=== PATIENT | female | born 1950 | race Caucasian/White ===

== ENCOUNTER 2016-08-26 11:53 | Emergency (ER) | payer OTHER ==
[2016-08-26 12:02] VITALS: BP 123/77; PULSE 90; TEMP 98.7; BMI 29.0
[2016-08-26] MEDS ORDERED: DIPHTH,PERTUSS(ACELL),TET 0.5 ML DISP.SYRIN IM ONE (12:53)
--- NOTE | 2016-08-26 13:00 | PDOC ---
History of Present Illness - General Chief Complaint: Pain Stated Complaint: LT FOOT LACERATION Time Seen by Provider: 08/26/16 12:12 History Source: Patient - History of Present Illness Initial Comments: 08/26/16 12:21 Pt. is a 66 y/o female with PMH of NIDDM who presents to [facility] with a chief complaint of a cut on her top left foot. Pt. states she dropped a steak knife on her left foot. Denies numbness or tingling, weakness, and loss of range of motion in the foot. Does not remember the date of her last tetanus vaccination. Past History - Travel Traveled outside of the country in the last 30 days: No Close contact w/someone who was outside of country & ill: No - Past Medical History Allergies/Adverse Reactions: Allergies Allergy/AdvReac Type Severity Reaction Status Date / Time No Known Drug Allergies Allergy Verified 08/26/16 11:57 Home Medications: Ambulatory Orders Aspirin Coated [Ecotrin -] 81 mg PO DAILY 08/30/11 Fosinopril Sodium [Monopril] 20 mg PO DAILY 08/30/11 Glipizide [Glucotrol -] 5 mg PO BID 08/30/11 Oxycodone HCl/Acetaminophen [Percocet 5-325 mg Tablet] 1 tab PO PRN PRN Atorvastatin Ca [Lipitor] 10 mg PO DAILY 08/12/12 Docusate Sodium [Colace -] 100 mg PO TID 08/12/12 Amitriptyline HCl [Elavil -] 1 tab PO HS 12/03/14 Sitagliptin Phos/Metformin HCl [Janumet 50-1,000 mg Tablet] 1 tab PO BID Gabapentin [Neurontin] 300 mg PO BID 12/04/14 Gabapentin [Neurontin] 600 mg PO HS 12/04/14 Oxycodone HCl/Acetaminophen [Percocet 5-325 mg Tablet] 1 tab PO Q6H PRN #20 tablet 12/04/14 Mupirocin 25 gm TP BID #1 tube 08/26/16 Anemia: No Asthma: No Cancer: No Cardiac Disorders: No CVA: No COPD: No CHF: No Dementia: No Diabetes: Yes (NIDDM) GI Disorders: No Disorders: No HTN: Yes Hypercholesterolemia: Yes Liver Disease: No Seizures: No Thyroid Disease: No - Surgical History Abdominal Surgery: Yes (TUMMY TUCK) Appendectomy: No Cardiac Surgery: No Cholecystectomy: No Lung Surgery: No Neurologic Surgery: No Orthopedic Surgery: Yes (RIGHT&LEFT ARTHROSCOPY,LEFT CARPAL TUNNEL,) - Psycho/Social/Smoking Cessation Hx Anxiety: No Suicidal Ideation: No Smoking Status: Yes Smoking History: Never smoked Have you smoked in the past 12 months: No Number of Cigarettes Smoked Daily: 0 If you are a former smoker, when did you quit?: 1995 Information on smoking cessation initiated: No Hx Alcohol Use: No Drug/Substance Use Hx: No Substance Use Type: None Hx Substance Use Treatment: No Review of Systems - Review of Systems Constitutional: No: Chills, Fever, Weakness Integumentary: Yes: Other (laceration to left foot). No: Bruising, Erythema, Pruritus *Physical Exam - Vital Signs Last Vital Signs Temp Pulse Resp BP Pulse Ox 98.7 F 90 18 123/77 100 08/26/16 11:57 08/26/16 11:57 08/26/16 11:57 08/26/16 11:57 08/26/16 11:57 - Physical Exam General Appearance: Yes: Nourished, Appropriately Dressed, Apparent Distress Vascular Pulses: Dorsalis-Pedis (R): 2+ (regular), Doralis-Pedis (L): 2+ ( regular) Extremity: positive: Normal Capillary Refill, Normal Range of Motion. negative : Normal Inspection (0.5cm superficial laceration of the L dorsal foot) Integumentary: positive: Other (0.5 cm superficial stab wound to the mid dorsal left foot. No need for suturing at this time. Bleeding controlled. ) Neurologic: positive: helmet hat sweatband puncher II-XII NML intact, Fully Oriented, Alert, Normal Mood/ Affect, Normal Response, Motor Strength 5/5 Procedures - Laceration/Wound Repair Left Medial Dorsal Foot Wound Length: to 2.5 cm (0.5cm in length) Wound Explored: no foreign body present Wound's Depth, Shape: superficial Irrigated w/ Saline: Yes Betadine Prep: Yes Sterile Dressing Applied: Yes Medical Decision Making - Medical Decision Making 08/26/16 13:30 Wound was irrigated with copious amounts of saline and betadine. Bleeding controlled after irrigation. Bacitracin and bandaid applied to wound. Tetanus updated at this time. Will discharge home at this time. Pt. was given strict return precautions and educated signs on of infection. Pt. understands all discharge instructions and all questions were answered at this time. *DC/Admit/Observation/Transfer Diagnosis at time of Disposition: Laceration of foot Qualifiers: Encounter type: initial encounter Laterality: left Qualified Code(s): S91.312A - Laceration without foreign body, left foot, initial encounter - Discharge Dispostion Disposition: HOME Condition at time of disposition: Stable Admit: No - Prescriptions Prescriptions: Mupirocin 25 gm TP BID #1 tube - Referrals Referrals: Dewey Carter MD [Primary Care Provider] - - Patient Instructions Additional Instructions: You have a small cut to the top of your foot. It did not require stitches. Your tetanus shot was updated today. Keep the area clean and dry. You were prescribed Mupirocin (bactroban) as an antibiotic ointment. Use the ointment twice a day. Keep the area covered while out or wearing shoes. Leave the wound open at night to air out. If it starts bleeding in the next 24-48 hours, put 4x4s and an RALEIGH wrap on your foot to stop the bleeding. You may use ice for comfort and to reduce the swelling. Take ibuprofen or Tylenol as needed for pain. Return to the ED if you see signs of infection such as warmth around the area, foul smelling drainage, or if you have fevers or chills.
== END 2016-08-26 13:24 | disposition home or self-care (01) ==
LOC: JERFT 11:53
DX: S91.312A Laceration without foreign body, left foot, initial encounter (principal); W26.0XXA Contact with knife, initial encounter; Y93.89 Activity, other specified; Y92.030 Kitchen in apartment as the place of occurrence of the external cause
CPT/HCPCS: 90715; 99281-25

== ENCOUNTER 2018-03-14 08:56 | Emergency (ER) | payer OTHER ==
--- NOTE | 2018-03-14 09:03 | PDOC ---
History of Present Illness - General Chief Complaint: Pain, Acute Stated Complaint: ABD PAIN Time Seen by Provider: 03/14/18 09:03 History Source: Patient Exam Limitations: No Limitations - History of Present Illness Initial Comments: 03/14/18 09:26 67 year old female with PMH DM presented to ED for epigastric pain x1 week. She stated her pain is constant, radiating to her right flank, alleviated by milk, aggravated by coffee and food. She admitted to nausea and increased urinary frequency. She denied vomiting, diarrhea, constipation, fever, chest pain, shortness of breath. She stated she has had a non productive cough x1 week and a runny nose yesterday. Past History - Past Medical History Allergies/Adverse Reactions: Allergies Allergy/AdvReac Type Severity Reaction Status Date / Time No Known Drug Allergies Allergy Verified 03/14/18 08:58 Home Medications: Ambulatory Orders Fosinopril Sodium [Monopril] 20 mg PO DAILY 08/30/11 Glipizide [Glucotrol -] 5 mg PO BID 08/30/11 Atorvastatin Ca [Lipitor] 10 mg PO DAILY 08/12/12 Amitriptyline HCl [Elavil -] 1 tab PO HS 12/03/14 Gabapentin [Neurontin] 600 mg PO QID 03/14/18 Liraglutide [Victoza -] 1.2 mg SQ DAILY@0700 03/14/18 Mag Hydrox/Al Hydrox/Simeth [Mylanta Suspension -] 30 ml PO Q6H #1 bottle Metformin HCl [Glucophage] 1,000 mg PO BID 03/14/18 Anemia: No Asthma: No Cancer: No Cardiac Disorders: No CVA: No COPD: No CHF: No Dementia: No Diabetes: Yes (NIDDM) GI Disorders: No Disorders: No HTN: Yes Hypercholesterolemia: Yes Liver Disease: No Seizures: No Thyroid Disease: No - Surgical History Abdominal Surgery: Yes (DONNA CRUZ) Appendectomy: No Cardiac Surgery: No Cholecystectomy: No Lung Surgery: No Neurologic Surgery: No Orthopedic Surgery: Yes (RIGHT&LEFT ARTHROSCOPY,LEFT CARPAL TUNNEL,) - Suicide/Smoking/Psychosocial Hx Smoking Status: Yes Smoking History: Never smoked Have you smoked in the past 12 months: No Number of Cigarettes Smoked Daily: 0 If you are a former smoker, when did you quit?: 1995 Hx Alcohol Use: No Drug/Substance Use Hx: No Substance Use Type: None Hx Substance Use Treatment: No Review of Systems - Review of Systems Able to Perform ROS?: Yes Comments:: 03/14/18 09:29 General: denied fever, chills, night sweats, generalized weakness. HEENT: admitted to rhinorrhea. denied sore throat, ear pain. Heart: denied chest pain, palpitations, syncope, lower extremity swelling, diaphoresis. Respiratory: admitted to cough. denied shortness of breath, sputum production, hemoptysis. Abdomen: admitted to abdominal pain, nausea. denied vomiting, diarrhea, constipation, blood in stool. : admitted to increased urinary frequency. denied dysuria, hematuria, urinary incontinence. Back: admitted to right flank pain. Musculoskeletal: denied joint pain, muscle pain, joint swelling. Neurological: denied headache, dizziness, numbness, tingling, weakness. Skin: denied rash, laceration, abrasion. *Physical Exam - Physical Exam Comments: 03/14/18 09:30 Constitutional: Well-nourished, Well-developed, appearing stated age. HEENT: head is normocephalic, atraumatic. EOMI. PERRLA. Neck: supple. Full ROM. Heart: regular rhythm. no murmurs, rubs or gallops. Lungs: clear to auscultation bilaterally. no crackles, rhonchi or wheezing. no stridor. Abdomen: soft, flat, tenderness to palpation of epigastrium and RUQ. murphys negative. normal bowel sounds. no rebound, guarding, masses. Back: no CVA tenderness bilaterally. Extremities: Peripheral pulses intact. No lower extremity edema. Neurological: CN 2-12 grossly intact. Moves all four extremities. Psych: awake, alert, oriented x3. Follows commands. Answers questions appropriately. ED Treatment Course - LABORATORY CBC & Chemistry Diagram: 03/14/18 09:20 03/14/18 09:20 Medical Decision Making - Medical Decision Making 03/14/18 09:30 67 year old female with PMH DM presented to ED for epigastric pain radiating to right flank associated with nausea and increased urinary frequency. Abdominal examination was significant for epigastric and RUQ tenderness. Initial Vital Signs Temp Pulse Resp BP Pulse Ox 97.9 F 89 16 113/70 100 03/14/18 09:04 03/14/18 09:04 03/14/18 09:04 03/14/18 09:04 03/14/18 09:04 Afebrile. No tachycardia. No tachypnea. Mild hypotension. No hypoxia on room air. Pepcid/Maalox/Zofran ordered for epigastric pain/nausea. Pending RUQ US, CMP for evaluation of possible acute GB pathology. Pending UA/UC, CBC for evaluation of possible UTI/pyelonephritis. Pending EKG, cardiac enzymes for evaluation of possible ACS. Pending Lipase for evaluation of possible pancreatitis. 03/14/18 10:20 EKG performed at 0945: rate 81, regular rhythm, left axis, incomplete rBBB, no acute ST changes. Similar to prior 12/04/2014. CBC WBC 8.1 K/mm3 (4.0-10.0) 03/14/18 09:20 RBC 5.62 M/mm3 (3.60-5.2) H 03/14/18 09:20 Hgb 13.1 GM/dL (10.7-15.3) 03/14/18 09:20 Hct 42.5 % (32.4-45.2) 03/14/18 09:20 MCV 75.6 fl (80-96) L 03/14/18 09:20 MCH 23.3 pg (25.7-33.7) L 03/14/18 09:20 MCHC 30.8 g/dl (32.0-36.0) L 03/14/18 09:20 RDW 16.5 % (11.6-15.6) H 03/14/18 09:20 Plt Count 138 K/MM3 (134-434) 03/14/18 09:20 MPV 9.1 fl (7.5-11.1) 03/14/18 09:20 Absolute Neuts (auto) 5.4 K/mm3 (1.5-8.0) 03/14/18 09:20 Neutrophils % 66.7 % (42.8-82.8) 03/14/18 09:20 Lymphocytes % 24.9 % (8-40) 03/14/18 09:20 Monocytes % 6.5 % (3.8-10.2) 03/14/18 09:20 Eosinophils % 1.3 % (0-4.5) 03/14/18 09:20 Basophils % 0.6 % (0-2.0) 03/14/18 09:20 Nucleated RBC % 0 % (0-0) 03/14/18 09:20 No leukocytosis. No anemia. CMP Sodium 141 mmol/L (136-145) 03/14/18 09:20 Potassium 4.1 mmol/L (3.5-5.1) 03/14/18 09:20 Chloride 108 mmol/L (98-107) H 03/14/18 09:20 Carbon Dioxide 23 mmol/L (21-32) 03/14/18 09:20 Anion Gap 10 MMOL/L (8-16) 03/14/18 09:20 BUN 21 mg/dL (7-18) H 03/14/18 09:20 Creatinine 0.8 mg/dL (0.55-1.3) 03/14/18 09:20 Creat Clearance w eGFR > 60 (>60) 03/14/18 09:20 Random Glucose 147 mg/dL (74-106) H 03/14/18 09:20 Calcium 8.8 mg/dL (8.5-10.1) 03/14/18 09:20 Total Bilirubin 0.4 mg/dL (0.2-1) 03/14/18 09:20 AST 35 U/L (15-37) 03/14/18 09:20 ALT 32 U/L (13-61) 03/14/18 09:20 Alkaline Phosphatase 104 U/L (45-117) 03/14/18 09:20 Creatine Kinase 59 IU/L (26-192) 03/14/18 09:20 Troponin I < 0.02 ng/ml (0.00-0.05) 03/14/18 09:20 Total Protein 7.4 g/dl (6.4-8.2) 03/14/18 09:20 Albumin 3.4 g/dl (3.4-5.0) 03/14/18 09:20 Lipase 719 U/L (73-393) H 03/14/18 09:20 No electrolyte abnormalities. No DANA. Mild dehydration. No transaminitis. Normal bilirubin. Mild hyperglycemia. Elevated lipase. Urine Test Results Urine Color Ltyellow 03/14/18 09:30 Urine Appearance Clear 03/14/18 09:30 Urine pH 5.0 (5.0-8.0) 03/14/18 09:30 Ur Specific [place] 1.017 (1.010-1.035) 03/14/18 09:30 Urine Protein Negative (NEGATIVE) 03/14/18 09:30 Urine Glucose (UA) 2+ (NEGATIVE) H 03/14/18 09:30 Urine Ketones Negative (NEGATIVE) 03/14/18 09:30 Urine Blood Negative (NEGATIVE) 03/14/18 09:30 Urine Nitrite Negative (NEGATIVE) 03/14/18 09:30 Urine Bilirubin Negative (<2.0 mg/dL) 03/14/18 09:30 Ur Leukocyte Esterase Trace (NEGATIVE) 03/14/18:30 Ur Epithelial Cells Rare /HPF (FEW) 03/14/18:30 Urine Mucus Rare 03/14/18 09:30 WBC = 1 No evidence of urinary tract infection. 03/14/18 11:10 RUQ US report: hepatomegaly with fatty liver. no gall stones. borderline thickening of GB wall, no pericholecystic fluid. 03/14/18 11:23 Pt reported pain completely resolved. Abdomen soft, flat, nontender to palpation. Dr. Carter paged to ensure her a prompt follow up appointment. 03/14/18 12:[address] Carter, who would like the patient to be admitted for observation. Pt to be admitted. 03/14/18 12:[address] Carter's PA recommends 1000 cc IV fluid bolus and discharge with liquid diet of 24-48 hours and progress as tolerated. She stated she has an appointment with Dr. Carter 03/22. They request GI follow up. Pt given GI referrals and informed to eat an all liquid diet for 24-48 hours. Pt expressed understanding for the plan for care and stated she would follow up with both PCP and GI. Pt to be discharged. *DC/Admit/Observation/Transfer Diagnosis at time of Disposition: Epigastric pain, Elevated lipase - Discharge Dispostion Disposition: HOME Condition at time of disposition: Improved Decision to Admit order: No - Prescriptions Prescriptions: Mag Hydrox/Al Hydrox/Simeth [Mylanta Suspension -] 30 ml PO Q6H #1 bottle - Referrals Referrals: Dewey Carter MD [Staff Physician] - 1 Week Marianna Gray MD [Staff Physician] - 1 Week - Patient Instructions Printed Discharge Instructions: Full Liquid Diet Additional Instructions: You were seen today for abdominal pain. Your lab work was normal, other than an elevated lipase, which is a marker for pancreatitis. Your ultrasound showed a fatty liver, no gall stones. Dr. Carter preferred to admit you for observation, but you refused. His recommendation is to follow up with him and a GI doctor, I have given you a referral. He recommended a liquid diet for 24-48 hours, and to progress as tolerated. Call Dr. Carter and ask for a sooner appointment. Follow up with GI in 1-3 days. Return to the Emergency Department for increasing pain, chest pain, shortness of breath, fever, lightheadedness like you may pass out, or any other new, worsening or concerning symptoms. DEVAN BERNARD - Post Discharge Activity Forms/Work/School Notes: Back to Work
[2018-03-14 09:06] VITALS: TEMP 97.9; BMI 34.3
[2018-03-14] MEDS ORDERED: MAG HYDROX/AL HYDROX/SIMETH 30 ML UNIT-DOSE CUP PO ONE (09:21)
[2018-03-14] MEDS ORDERED: ONDANSETRON 4 MG/2 ML VIAL IVPUSH ONE (09:21)
[2018-03-14] MEDS ORDERED: FAMOTIDINE 20 MG/50 ML IVPB 20 MG/50 ML MG IVPB ONE ×2 (09:21→09:31)
[2018-03-14] MEDS ORDERED: ONDANSETRON 4 MG/2 ML VIAL ONE (09:30)
[2018-03-14] MEDS ORDERED: MAG HYDROX/AL HYDROX/SIMETH 30 ML UNIT-DOSE CUP ONE (09:30)
[2018-03-14 09:47] LABS: BASO % 0.6 % (0-2.0); EOS % 1.3 % (0-4.5); HEMATOCRIT 42.5 % (32.4-45.2); HEMOGLOBIN 13.1 GM/dL (10.7-15.3); LYMPH % 24.9 % (8-40); MCH 23.3 pg (25.7-33.7); MCHC 30.8 g/dl (32.0-36.0); MEAN CELL VOLUME 75.6 fl (80-96); MEAN PLT VOLUME 9.1 fl (7.5-11.1); MONO % 6.5 % (3.8-10.2); NEUT % 66.7 % (42.8-82.8); PLATELET COUNT 138 K/MM3 (134-434); RBC 5.62 M/mm3 (3.60-5.2); RDW 16.5 % (11.6-15.6); WHITE BLOOD COUNT 8.1 K/mm3 (4.0-10.0)
[2018-03-14 10:01] LABS: INR 1.07 (0.83-1.09); PROTHROMBIN TIME (PATIENT) 12.6 SEC (9.7-13.0)
[2018-03-14 10:03] LABS: ACTIVATED PTT 26.1 SECONDS (25.2-36.5)
[2018-03-14 10:03] LABS: URINE APPEARANCE CLEAR; URINE BILIRUBIN NEGATIVE (<2.0 mg/dL); URINE COLOR LTYELLOW; URINE GLUCOSE (UA) 2+ (NEGATIVE); URINE KETONE NEGATIVE (NEGATIVE); URINE LEUK ESTERASE TRACE (NEGATIVE); URINE NITRITE NEGATIVE (NEGATIVE); URINE PROTEIN NEGATIVE (NEGATIVE); URINE UROBILINOGEN NEGATIVE mg/dL (0.2-1.0)
[2018-03-14 10:10] LABS: ALBUMIN 3.4 g/dl (3.4-5.0); ALK PHOS 104 U/L (45-117); ANION GAP 10 MMOL/L (8-16); BILIRUBIN,TOTAL 0.4 mg/dL (0.2-1); BLOOD UREA NITROGEN 21 mg/dL (7-18); CALCIUM 8.8 mg/dL (8.5-10.1); CHLORIDE 108 mmol/L (98-107); CO2 23 mmol/L (21-32); CREATININE 0.8 mg/dL (0.55-1.3); GLUCOSE,RANDOM 147 mg/dL (74-106); POTASSIUM 4.1 mmol/L (3.5-5.1); SGOT/AST 35 U/L (15-37); SGPT/ALT 32 U/L (13-61); SODIUM 141 mmol/L (136-145); TOT PROT 7.4 g/dl (6.4-8.2)
[2018-03-14 10:13] LABS: EPI CELLS RARE /HPF (FEW); URINE HYALINE CAST 1 /lpf; URINE MUCUS RARE
--- NOTE | 2018-03-14 10:27 | EKG ---
Test Reason : Blood Pressure : / mmHG Vent. Rate : 081 BPM Atrial Rate : 081 BPM P-R Int : 178 ms QRS Dur : 104 ms QT Int : 392 ms P-R-T Axes : 042 -23 018 degrees QTc Int : 455 ms NORMAL SINUS RHYTHM INCOMPLETE RIGHT BUNDLE BRANCH BLOCK BORDERLINE ECG WHEN COMPARED WITH ECG OF 04-DEC-2014 06:20, NO SIGNIFICANT CHANGE WAS FOUND Confirmed by JOSE LUIS SANTA MD ([id number]) on 03/14/2018 10:26:49 AM Referred By: Confirmed By:JOSE LUIS SANTA MD
[2018-03-14] MEDS ORDERED: SODIUM CHLORIDE 1,000 ML IV STA (12:35)
[2018-03-14] MEDS ORDERED: LACTATED RINGERS SOLUTION 1000 ML INFUS.BAG IV ONE (12:37)
--- NOTE | 2018-03-14 12:38 | CONSULT ---
Consult Consult Specialty:: Internal Medicine Referred by:: ED Reason for Consultation:: assess for admission - History of Present Illness Chief Complaint: abdominal pain History of Present Illness: 67 year old female pmh of HTN, NIDDM presents with abd pain x 1.5 weeks. Pt reports she's been having moderate intermittent aching abd pain, radiating across upper abdomen. She reports increased pain 1-2 hours post meals. She reports she has been eating/drinking less due to pain. Otherwise, denies any chest pain, sob, n/v/d, dysuria, fever/chills. During my interaction, pt lying in bed in no acute distress. In ED, lipase noted to be 719. Pt reports pain has subsided and she feels well. - History Source History Provided By: Patient Limitations to Obtaining History: No Limitations - Past Medical History Cardio/Vascular: Yes: HTN Endocrine: Yes: Diabetes Mellitus - Alcohol/Substance Use Hx Alcohol Use: No History of Substance Use: reports: None - Smoking History Smoking history: Never smoked Have you smoked in the past 12 months: No Aproximately how many cigarettes per day: 0 If you are a former smoker, when did you quit?: 1995 Home Medications - Allergies Allergies/Adverse Reactions: Allergies Allergy/AdvReac Type Severity Reaction Status Date / Time No Known Drug Allergies Allergy Verified 03/14/18 08:58 - Home Medications Home Medications: Ambulatory Orders Fosinopril Sodium [Monopril] 20 mg PO DAILY 08/30/11 Glipizide [Glucotrol -] 5 mg PO BID 08/30/11 Atorvastatin Ca [Lipitor] 10 mg PO DAILY 08/12/12 Amitriptyline HCl [Elavil -] 1 tab PO HS 12/03/14 Gabapentin [Neurontin] 600 mg PO QID 03/14/18 Liraglutide [Victoza -] 1.2 mg SQ DAILY@0700 03/14/18 Mag Hydrox/Al Hydrox/Simeth [Mylanta Suspension -] 30 ml PO Q6H #1 bottle Metformin HCl [Glucophage] 1,000 mg PO BID 03/14/18 Family Disease History - Family Disease History Family Disease History: Diabetes: Mother, Heart Disease: Mother Physical Exam Vital Signs: Vital Signs Temperature 97.9 F 03/14/18 09:04 Pulse Rate 89 03/14/18 09:04 Respiratory Rate 16 03/14/18 09:04 Blood Pressure 113/70 03/14/18 09:04 O2 Sat by Pulse Oximetry (%) 99 03/14/18 09:40 Constitutional: Yes: Well Nourished, No Distress Cardiovascular: Yes: WNL, Regular Rate and Rhythm. No: Murmur, Rub Respiratory: Yes: WNL, Regular, CTA Bilaterally. No: Accessory Muscle Use, SOB , Tachypnea, Wheezes Gastrointestinal: Yes: WNL, Normal Bowel Sounds, Soft, Abdomen, Obese. No: Distention, Tenderness, Tenderness, Rebound, Vomiting Renal/: Yes: WNL Musculoskeletal: Yes: WNL Extremities: Yes: WNL Edema: No Neurological: Yes: WNL, Alert, Oriented Psychiatric: Yes: WNL, Alert, Oriented Labs: CBC, BMP 03/14/18 09:20 03/14/18 09:20 Imaging - Results Ultrasound: Report Reviewed (no acute findings) Problem List - Problems (1) Abdominal pain Code(s): R10.9 - UNSPECIFIED ABDOMINAL PAIN Qualifiers: Abdominal location: epigastric Qualified Code(s): R10.13 - Epigastric pain (2) Elevated lipase Code(s): R74.8 - ABNORMAL LEVELS OF OTHER SERUM ENZYMES Assessment/Plan 67 year old female presents w/ intermittent aching upper abd pain, mildly elevated lipase noted. Abd exam benign. I advised observation admission but the pt refuses. Will give 1L LR bolus. Advise clear/full liquids and advance as tolerated, GI follow up, and close monitoring with PCP. Hold Victoza in the mean time as pancreatitis can be an adverse effect. Case discussed with PCP and ED covering. 32 minutes spent in reviewing chart, formulating plan, and discussing with interdisciplinary team
--- NOTE | 2018-03-14 12:49 | PDOC ---
Attending Attestation - HPI HPI: 03/14/18 13:34 The patient is a 67 year old female, with a significant past medical history of diabetes, who presents to the emergency department with one week epigastric pain , nausea, increased frequency. She reports her epigastric pain radiates to her right upper quadrant and right flank. The patient denies chest pain, shortness of breath, headache and dizziness. The patient denies fever, chills, vomit, diarrhea and constipation. The patient denies dysuria, urgency and hematuria. Allergies: NKDA - Medical Decision Making 03/14/18 13:35 Documentation prepared by Teresa Bryan, acting as medical aides teacher for Stephanie Smith MD <Teresa Bryan - Last Filed: 03/14/18 13:34> - Resident Resident Name: Anisa Pisano - ED Attending Attestation I have performed the following: I have examined & evaluated the patient, The case was reviewed & discussed with the resident, I agree w/resident's findings & plan, Exceptions are as noted - Physicial Exam PE: GENERAL: Awake, alert, and fully oriented, in no acute distress HEAD: No signs of trauma EYES: PERRLA, EOMI, sclera anicteric, conjunctiva clear ENT: Auricles normal inspection, hearing grossly normal, nares patent, oropharynx clear without exudates. Moist mucosa NECK: Normal ROM, supple, no lymphadenopathy, JVD, or masses LUNGS: Breath sounds equal, clear to auscultation bilaterally. No wheezes, and no crackles HEART: Regular rate and rhythm, normal S1 and S2, no murmurs, rubs or gallops ABDOMEN: Soft, +mild epigastric tenderness, normoactive bowel sounds. No guarding, no rebound. No masses EXTREMITIES: Normal range of motion, no edema. No clubbing or cyanosis. No cords, erythema, or tenderness NEUROLOGICAL: Cranial nerves II through XII grossly intact. Normal speech, normal gait SKIN: Warm, Dry, normal turgor, no rashes or lesions noted. - Medical Decision Making Pt with epigastric tenderness, found to have elevation in lipase, but not more than 3x the upper limit of normal. Patient is tolerating PO in ED after GI cocktail, no signs of acute abdomen. Would recommend urgent outpatient f/u with her PMD to continue to monitor labs. <Stephanie Smith - Last Filed: 03/14/18 14:19>
[2018-03-14 14:11] VITALS: BP 118/72; PULSE 78
== END 2018-03-14 14:12 | disposition home or self-care (01) ==
LOC: JER 08:56 → UNDOADMOB 12:18 → JERBED 12:18
PROC: 3E033GC Introduction of Other Therapeutic Substance into Peripheral Vein, Percutaneous Approach (ICD-10-PCS; principal; 2018-03-14)
PROC: 3E033GC Introduction of Other Therapeutic Substance into Peripheral Vein, Percutaneous Approach (ICD-10-PCS; 2018-03-14)
DX: R10.31 Right lower quadrant pain (principal); R74.8 Abnormal levels of other serum enzymes; I10 Essential (primary) hypertension; E11.9 Type 2 diabetes mellitus without complications; Z79.84 Long term (current) use of oral hypoglycemic drugs; E78.00 Pure hypercholesterolemia, unspecified
CPT/HCPCS: 36415; 76705-TC; 80053; 81003; 81015; 82550; 83690; 84484; 85025; 85610; 85730; 86850; 86900; 86901; 87086; 93005; 93010; 99284-25

== ENCOUNTER 2018-03-29 09:22 | Day surgery (SDC) | payer OTHER ==
[2018-03-27 14:08] VITALS: BMI 34.3
[2018-03-29] MEDS ORDERED: BUPIVACAINE HCL/PF 2.5 MG/ML - 30 ML VIAL IJ ONE (13:32)
[2018-03-29] MEDS ORDERED: ceFAZolin SODIUM 1 GM VIAL ONE (13:57)
[2018-03-29] MEDS ORDERED: ONDANSETRON 4 MG/2 ML VIAL ONE (14:09)
[2018-03-29] MEDS ORDERED: DEXAMETHASONE SOD PHOSPHATE 4 MG/1 ML VIAL ONE (14:09)
[2018-03-29] MEDS ORDERED: BUPIVACAINE HCL/PF 0.25% (2.5MG/ML) 10 ML VIAL IJ ONE (14:27)
[2018-03-29] MEDS ORDERED: ONDANSETRON 4 MG/2 ML VIAL IVPUSH PRN (14:56)
[2018-03-29] MEDS ORDERED: ACETAMINOPHEN 325 MG TABLET (FP) PO PRN (14:56)
[2018-03-29] MEDS ORDERED: ACETAMINOPHEN 325 MG TABLET (FP) ONE (15:15)
[2018-03-29] MEDS ORDERED: ACETAMINOPHEN 325 MG TABLET (FP) PO ONE (15:15)
[2018-03-29 15:50] VITALS: TEMP 97.9
[2018-03-29] MEDS ORDERED: oxyCODONE HCL 5 MG TABLET PO PRN (16:21)
[2018-03-29 16:47] VITALS: BP 120/72; PULSE 73
--- NOTE | 2018-04-01 12:55 | OP ---
DATE OF OPERATION: 03/29/2018 SURGEON: Cedric Khalil MD CIGAR HEAD PUNCHER: DILLON Josue PREOPERATIVE DIAGNOSES: 1. Right knee medial and lateral meniscal tear. 2. Right knee cartilage tear. 3. Right knee synovitis. POSTOPERATIVE DIAGNOSES: 1. Right knee medial and lateral meniscal tear. 2. Right knee cartilage tear. 3. Right knee synovitis. PROCEDURE: 1. Right knee arthroscopy with partial meniscectomy medial and lateral meniscus, CPT code 38165. 2. Right knee arthroscopy with chondroplasty and abrasion-plasty, CPT code 96985. 3. Right knee arthroscopy with synovectomy including removal of medial plica, 2975. FINDINGS: 1. Medial meniscus posterior horn tear, minor. 2. Lateral meniscus posterior one half tear. 3. Synovitis patellofemoral medial and lateral notch area. 4. Anterior grade 2-3 cartilage injury medial femoral condyle tibial plateau. 5. ACL and PCL intact. 6. Minimal cartilage changes lateral femoral condyle tibial plateau. 7. Central grade 2-4 cartilage injury patella and patellofemoral trochlea. PROCEDURE: Informed consent was obtained. The patient came to the operating room, where the lower extremity was prepped and draped in a sterile fashion. A tourniquet was placed on the upper thigh, but not inflated. Using standard arthroscopic technique, a lateral incision and portal was made to allow for introduction of the camera into the suprapatellar bursa. This was then taken to the medial joint line, where under direct visualization, a medial incision and portal was made. Excessive synovium noted in the medial, lateral and patellofemoral and notch area was removed by an upbiter, shaver and Bovie cautery. This was found to bring in inflammatory tissue into the joint surface, a source of pain and dysfunction. Probing of the medial and lateral meniscus found tears, as described in the findings. These were removed with the upbiter and shaver and taken back to a stable rim. Grade 2 to 3 degenerative changes were treated with a chondroplasty, removing all flaking surfaces with low-setting Bovie along the periphery to prevent further flaking. Grade 4 changes, as noted, were treated with an abrasoplasty, creating a bleeding surface at the bone/cartilage interface. Aggressive debridement with shaver/sandrita created bleeding surface. Micro fracture also done when indicated in findings. All areas of the knee were once again reexamined. The knee was then drained and a single suture was placed in all portals. A sterile dressing was placed and the patient was transferred to the recovery room without complication. The PA listed above was present and assisted at surgery. Their presence was absolutely medically necessary for the completion of the procedure. They helped hold the arthroscopy, pass instruments (and implants when indicated) and the procedure could not have been completed without their assistance. CEDRIC KHALIL M.D. [id number]
--- NOTE | 2018-04-03 18:33 | PATH ---
Surgical Pathology Report Patient Name: BIA BOWMAN Med. Rec. #: [id number] /Age/Gender: 1950 (Age: 67) / F Account: [id number] Location: [facility] Taken: 03/29/2018 Received: 03/29/2018 Reported: 04/03/2018 Physicians: Cedric Pinto M.D. Specimen(s) Received SHAVINGSRIGHT KNEE SHAVINGS Clinical History Right internal derangement Final Diagnosis RIGHT KNEE SHAVINGS: FRAGMENTS OF CARTILAGE AND FIBROSYNOVIAL TISSUE WITH DEGENERATIVE CHANGE. Electronically Signed Nehemias Zarate M.D. Gross Description Received in formalin labeled "right knee shavings" are multiple fragments of white-ayon fibrocartilaginous soft tissue measuring 2 x 1.5 x 0.4 cm aggregate. Entire specimen is submitted in one cassette. MLLeiaZ/04/01/2018 quinn/04/01/2018
== END 2018-03-29 16:47 | disposition home or self-care (01) ==
LOC: FASU 09:22
PROVIDERS: ATTEND Orthopaedic Surgery
PROC: 0SBC4ZZ Excision of Right Knee Joint, Percutaneous Endoscopic Approach (ICD-10-PCS; 2018-03-29)
PROC: 0SBC4ZZ Excision of Right Knee Joint, Percutaneous Endoscopic Approach (ICD-10-PCS; 2018-03-29)
PROC: 0SBC4ZZ Excision of Right Knee Joint, Percutaneous Endoscopic Approach (ICD-10-PCS; principal; 2018-03-29 14:16)
DX: S83.241A Other tear of medial meniscus, current injury, right knee, initial encounter (principal); S83.281A Other tear of lateral meniscus, current injury, right knee, initial encounter; S83.8X1A Sprain of other specified parts of right knee, initial encounter; M65.861 Other synovitis and tenosynovitis, right lower leg; X58.XXXA Exposure to other specified factors, initial encounter; Y93.9 Activity, unspecified; Y92.9 Unspecified place or not applicable
CPT/HCPCS: 82962; 88304-TC; 94760

== ENCOUNTER 2019-02-03 08:46 | Emergency (ER) | payer OTHER ==
[2019-02-03 08:53] VITALS: TEMP 98.6; BMI 34.3
[2019-02-03 09:57] VITALS: BP 137/78
--- NOTE | 2019-02-03 09:58 | PDOC ---
History of Present Illness - General Chief Complaint: Respiratory Stated Complaint: COUGHING/ BACK ACHE Time Seen by Provider: 02/03/19 08:58 History Source: Patient - History of Present Illness Initial Comments: 02/03/19 09:53 68 yo F PMH of HTN, HLD, DM presented to ED with cough and chest tightness x 1.5 weeks. 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 pt states cough has been constant for the past week and a half. she states that shes been coughing so much now she has chest tightness b/l. she states the cough improved a little after taking some cough syrup. the cold air makes the cough worse. pt states cough is productive but denies hemoptysis. pt denies fevers, n/v/d. pt had similar cough and presentation in december which resolved with Z pack. additionally, pt states she has been having financial difficulty paying for diabetic medication and is searching for more affordable alternatives. pt states she recently has been experiencing numbness and tingling in her B/L LE Past History - Past Medical History Allergies/Adverse Reactions: Allergies Allergy/AdvReac Type Severity Reaction Status Date / Time No Known Drug Allergies Allergy Verified 02/03/19 08:48 Home Medications: Ambulatory Orders Atorvastatin Ca [Lipitor] 10 mg PO DAILY 08/12/12 Amitriptyline HCl [Elavil -] 1 tab PO HS 12/03/14 Gabapentin [Neurontin] 600 mg PO QID 03/14/18 Metformin HCl [Glucophage] 1,000 mg PO BID 03/14/18 Aspirin [Adult Aspirin] 81 mg PO DAILY 03/27/18 Docusate Sodium [Colace] 100 mg PO BID 03/27/18 Fosinopril Sodium 20 mg PO DAILY 03/29/18 Glimepiride 1 mg PO BID 03/29/18 Pantoprazole Sodium [Protonix] 40 mg PO DAILY 03/29/18 Anemia: No Asthma: No Cancer: No Cardiac Disorders: No CVA: No COPD: No CHF: No Dementia: No Diabetes: Yes (NIDDM) GI Disorders: No Disorders: No HTN: Yes Hypercholesterolemia: Yes Liver Disease: No Seizures: No Thyroid Disease: No - Surgical History Abdominal Surgery: Yes (DONNA CRUZ) Appendectomy: No Cardiac Surgery: No Cholecystectomy: No Lung Surgery: No Neurologic Surgery: No Orthopedic Surgery: Yes (RIGHT&LEFT ARTHROSCOPY,LEFT CARPAL TUNNEL,) - Immunization History Immunization Up to Date: Yes - Psycho Social/Smoking Cessation Hx Smoking Status: Yes Smoking History: Never smoked Have you smoked in the past 12 months: No Number of Cigarettes Smoked Daily: 0 If you are a former smoker, when did you quit?: 1995 Hx Alcohol Use: No Drug/Substance Use Hx: No Substance Use Type: None Hx Substance Use Treatment: No Review of Systems - Review of Systems Is the patient limited Norwegian proficient: Yes Constitutional: Yes: Chills. No: Fever HEENTM: Yes: Throat Pain. No: Difficulty Swallowing Respiratory: Yes: Cough, Productive cough. No: Wheezing, Hemoptysis Cardiac (ROS): Yes: Chest Tightness. No: Edema, Irregular Heart Rate, Palpitations ABD/GI: No: Blood Streaked Bowels, Diarrhea, Nausea, Poor Fluid Intake, Vomiting : No: Dysuria, Frequency, Hematuria Musculoskeletal: Yes: Joint Pain, Joint Stiffness Neurological: Yes: Numbness (b/ le ), Tingling *Physical Exam - Vital Signs Last Vital Signs Temp Pulse Resp BP Pulse Ox 98.6 F 82 18 127/69 9 L 02/03/19 08:48 02/03/19 08:48 02/03/19 08:48 02/03/19 08:48 02/03/19 08:48 - Physical Exam General Appearance: Yes: Nourished, Appropriately Dressed HEENT: positive: Normal Voice, Pharyngeal Erythema Neck: positive: Lymphadenopathy (L) (submandibular ) Respiratory/Chest: positive: Lungs Clear, Normal Breath Sounds. negative: Accessory Muscle Use Cardiovascular: positive: Regular Rhythm, Regular Rate, S1, S2. negative: JVD Gastrointestinal/Abdominal: positive: Normal Bowel Sounds. negative: Distended Extremity: positive: Normal Inspection Neurologic: positive: Fully Oriented. negative: Numbness, Sensory Deficit ( sensory intact b/l LE ) ED Treatment Course - LABORATORY CBC & Chemistry Diagram: 02/03/19 10:10 02/03/19 10:10 - RADIOLOGY Radiology Studies Ordered: Category Date Time Status CHEST X-RAY PORTABLE* [RAD] Stat Radiology 02/03/19 09:38 Ordered Medical Decision Making - Medical Decision Making 02/03/19 10:03 68 yo F presenting with cough and chest tightness. r/o ACS r/o pna , bronchitis r/o asthma exac likely URI -CBC, BMP -flu swab -EKG , trops r/o ACS -CXR r/o pna -pt afebrile, vitas stable 02/03/19 10:05 CXR reviewed, poor quality --> bnp ordered , possibly overload . no evidence of vascular congestive changes -ventolin , poss rxtive airway. pt states symptoms are worse in cold air -ISS, BGM 02/03/19 10:16 -cepacol drop 02/03/19 11:11 EKG reviewed NSR CBC reviewed no leukocytosis BNP 315
[2019-02-03] MEDS ORDERED: ALBUTEROL SO4 0.083% IH SOL 2.5 MG/3 ML VIAL.NEB. NEB PRN (10:04)
[2019-02-03] MEDS ORDERED: BENZOCAINE/MENTH/CETYLPYRD CL 1 EACH LOZENGE MM PRN (10:17)
--- NOTE | 2019-02-03 10:17 | PDOC ---
Documentation entered by Amarilis Ty SCRIBE, acting as scribe for Pamela Tuttle DO. Pamela Tuttle DO: This documentation has been prepared by the Melony fernandez Sammi, SCRIBE, under my direction and personally reviewed by me in its entirety. I confirm that the documentation accurately reflects all work, treatment, procedures, and medical decision making performed by me. Attending Attestation - Resident Resident Name: SumanthMary - ED Attending Attestation I have performed the following: I have examined & evaluated the patient, The case was reviewed & discussed with the resident, I agree w/resident's findings & plan, Exceptions are as noted - HPI HPI: 02/03/19 10:37 The patient is a 68 year old female who presents to the emergency department for evaluation of 1.5 weeks of worsening cold like symptoms. She notes the onset of a sore throat and productive cough (beige colored) which is exacerbated in the cold like when the air conditioner is on. She denies nausea, vomiting, or diarrhea. 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 PMH: DM (noncompliant with medications) PCP: Raul - Physicial Exam PE: 02/03/19 10:38 GENERAL: Awake, alert, and fully oriented, in no acute distress EYES: PERRLA, EOMI, sclera anicteric, conjunctiva clear ENT: Auricles normal inspection, hearing grossly normal, nares patent, oropharynx clear without exudates or erythema. NECK: Normal ROM, supple, no lymphadenopathy, JVD, or masses LUNGS: Breath sounds equal, clear to auscultation bilaterally. No wheezes, and no crackles. Not in respiratory distress, stating 100% on room air. HEART: Regular rate and rhythm, normal S1 and S2, no murmurs, rubs or gallops ABDOMEN: Obese, soft, nontender. No guarding, no rebound. No masses EXTREMITIES: +left lower extremity > than right (chronic). Normal range of motion, no edema. No cords, erythema, or tenderness. No calf tenderness. NEUROLOGICAL: Cranial nerves II through XII grossly intact. Normal speech, ambulates with steady gate. SKIN: Warm, Dry, normal turgor, no rashes or lesions noted. - Medical Decision Making 02/03/19 10:09 I, Dr. Pamela Tuttle, DO, attest that this document has been prepared under my direction and personally reviewed by me in its entirety. I further attest, that it accurately reflects all work, treatment, procedures and medical decision -making performed by me. 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
[2019-02-03 10:26] VITALS: PULSE 82
[2019-02-03 10:28] LABS: HEMATOCRIT 41.6 % (32.4-45.2); HEMOGLOBIN 13.2 GM/dL (10.7-15.3); MCH 22.9 pg (25.7-33.7); MCHC 31.7 g/dl (32.0-36.0); MEAN CELL VOLUME 72.1 fl (80-96); MEAN PLT VOLUME 8.8 fl (7.5-11.1); PLATELET COUNT 127 K/MM3 (134-434); RBC 5.77 M/mm3 (3.60-5.2); RDW 18.3 % (11.6-15.6); WHITE BLOOD COUNT 5.7 K/mm3 (4.0-10.0)
[2019-02-03 10:57] LABS: ANION GAP 8 MMOL/L (8-16); BLOOD UREA NITROGEN 13.2 mg/dL (7-18); CALCIUM 8.8 mg/dL (8.5-10.1); CHLORIDE 107 mmol/L (98-107); CO2 24 mmol/L (21-32); CREATININE 0.9 mg/dL (0.55-1.3); GLUCOSE,RANDOM 158 mg/dL (74-106); N-TERMINAL BNP 315.2 pg/ml (5-125); POTASSIUM 4.2 mmol/L (3.5-5.1); SODIUM 140 mmol/L (136-145)
[2019-02-03] MEDS ORDERED: INSULIN SLIDING SCALE (NOVOLOG) 1 VIAL SQ SCH (11:00)
[2019-02-03] MEDS ORDERED: ALBUTEROL SO4 2.5/IPRATROPIUM 0.5 INH SOL 3 ML VIAL.NEB. NEB ONE (11:14)
[2019-02-03] MEDS ORDERED: SODIUM CHLORIDE 0.9% 1000 ML INFUS.BAG IV ONE (11:19)
--- NOTE | 2019-02-04 11:06 | EKG ---
Test Reason : Blood Pressure : / mmHG Vent. Rate : 077 BPM Atrial Rate : 077 BPM P-R Int : 174 ms QRS Dur : 088 ms QT Int : 400 ms P-R-T Axes : 089 -24 006 degrees QTc Int : 452 ms POOR DATA QUALITY, INTERPRETATION MAY BE ADVERSELY AFFECTED SINUS RHYTHM WITH PREMATURE SUPRAVENTRICULAR COMPLEXES OTHERWISE NORMAL ECG WHEN COMPARED WITH ECG OF 14-MAR-2018 09:45, PREMATURE SUPRAVENTRICULAR COMPLEXES ARE NOW PRESENT Confirmed by Josh Hutson MD ([id number]) on 02/04/2019 11:05:48 AM Referred By: Confirmed By:Josh Hutson MD
== END 2019-02-03 12:18 | disposition home or self-care (01) ==
LOC: JER 08:46
PROC: 3E0F7GC Introduction of Other Therapeutic Substance into Respiratory Tract, Via Natural or Artificial Opening (ICD-10-PCS; principal; 2019-02-03)
DX: J20.9 Acute bronchitis, unspecified (principal); I10 Essential (primary) hypertension; E78.00 Pure hypercholesterolemia, unspecified; E78.5 Hyperlipidemia, unspecified; E11.9 Type 2 diabetes mellitus without complications; Z79.84 Long term (current) use of oral hypoglycemic drugs
CPT/HCPCS: 36415; 71045-TC-FY; 80048; 82550; 82962; 83880; 84484; 85027; 87804; 93005; 93010; 94640; 99283-25; J7030

== ENCOUNTER → 2021-03-17 | Day surgery (SDC) | payer BC, OTHER | END | disposition home or self-care (01) | LOC: FMAMMOTONE 09:57 | PROVIDERS: ATTEND Internal Medicine Geriatric Medicine | PROC: 0HBU3ZX Excision of Left Breast, Percutaneous Approach, Diagnostic (ICD-10-PCS; principal; 2021-03-17) | DX: N64.89 Other specified disorders of breast (principal); R92.8 Other abnormal and inconclusive findings on diagnostic imaging of breast | CPT/HCPCS: 19081; 88305-TC; A4648 ==

== ENCOUNTER 2022-02-20 09:36 | Emergency (ER) | payer BC, OTHER ==
[2022-02-20 09:54] VITALS: BP 113/61; PULSE 71; RESP 16; TEMP 97.2; BMI 33.2
== END 2022-02-20 11:51 | disposition home or self-care (01) ==
LOC: JERFT 09:36 → JER 09:36 → JERFT 11:51
DX: L03.116 Cellulitis of left lower limb (principal)
CPT/HCPCS: 73630-TC-LT; 99283-25

== ENCOUNTER 2024-01-05 10:28 | Emergency (ER) | payer OTHER ==
[2024-01-05 10:38] VITALS: BP 160/75; PULSE 96; RESP 16; TEMP 97.9; BMI 27.4
[2024-01-05] MEDS ORDERED: TETRACAINE 0.5% OPHTH SOLN 2 ML BOTTLE ONE (11:26)
[2024-01-05] MEDS ORDERED: FLUORESCEIN NA 1 EA STRIP ONE (11:26)
== END 2024-01-05 14:39 | disposition home or self-care (01) ==
LOC: JERFT 10:28
DX: B30.1 Conjunctivitis due to adenovirus (principal); H92.03 Otalgia, bilateral; H53.8 Other visual disturbances; Z20.822 Contact with and (suspected) exposure to COVID-19
CPT/HCPCS: 0241U-QW; 99283-25